=== PATIENT | male | born 1995 | race Caucasian/White ===

== ENCOUNTER → 2016-12-03 | Outpatient (CLI) | payer BC ==
[~2016-12-03] MED LIST: CELE20TA PO; SYMB80INH INH; TRAZ50TA4 PO; XANA0.5T PO; ZYRT10TA2 PO
--- NOTE | 2016-12-03 19:05 | REP ---
RIGHT ELBOW, FOUR VIEWS: There is no evidence of an acute fracture, dislocation or intrinsic bone disease. IMPRESSION: No fracture or dislocation. Signed by Lincoln Lea MD 12/03/2016 07:18 P
--- NOTE | 2016-12-03 19:06 | REP ---
RIGHT WRIST, FOUR VIEWS: There is no evidence of an acute fracture, dislocation or intrinsic bone disease. IMPRESSION: No fracture or dislocation. Signed by Lincoln Lea MD 12/03/2016 07:18 P
--- NOTE | 2016-12-03 19:07 | REP ---
LEFT HAND, FOUR VIEWS: There is no evidence of an acute fracture, dislocation or intrinsic bone disease. IMPRESSION: No fracture or dislocation. Signed by Lincoln Lea MD 12/03/2016 07:18 P
--- NOTE | 2016-12-03 19:08 | REP ---
RIGHT FOOT, FOUR VIEWS: There is no evidence of an acute fracture, dislocation or intrinsic bone disease. IMPRESSION: No fracture or dislocation. Signed by Lincoln Lea MD 12/03/2016 07:18 P
== END ==
LOC: M LRY 17:51
PROVIDERS: ATTEND Nurse Practitioner Family
DX: S59.901A Unspecified injury of right elbow, initial encounter (principal); S99.921A Unspecified injury of right foot, initial encounter; S69.91XA Unspecified injury of right wrist, hand and finger(s), initial encounter; X58.XXXA Exposure to other specified factors, initial encounter; Y93.9 Activity, unspecified; Y92.9 Unspecified place or not applicable; Y99.8 Other external cause status

== ENCOUNTER 2017-01-06 00:07 | Emergency (ER) | payer BC ==
--- NOTE | 2017-01-06 02:35 | EDDOCDS ---
Physician Documentation [facility] Name: Jason Zhu Age: 21 yrs Sex: Male : 1995 Arrival Date: 01/06/2017 Time: 00:07 Bed I Private MD: Disposition: 01/06/17 02:30 Discharged to Home/Self Care. Impression: Impacted cerumen, right ear. - Condition is Stable. - Discharge Instructions: Cerumen Impaction. - Medication Reconciliation, Local Pharmacy Hours form. - Follow up: Private Physician; When: As needed; Reason: Recheck today's complaints, Continuance of care. - Problem is new. - Symptoms have improved. - Notes: FOLLOW UP WITH YOUR DOCTOR NEEDED, RETURN TO THE ER IF THE SYMPTOMS WORSEN OR BECOME CONCERNING Historical: - Allergies: PENICILLINS (Rash); - Home Meds: 1. citalopram 40 mg Oral tab once daily 2. OTC antacid 3. symbicort in haler as needed 4. Xanax 0.25 mg Oral tab 1 tab as needed 5. Zyrtec 10 mg Oral tab 1 tab once daily 6. hycosamine .325 BID - PMHx: Anxiety; Environmental allergies; IBS; - PSHx: right shoulder surgery; Tonsillectomy; Tubes in ears; - Social history: Smoking status: Patient uses tobacco products, current every day smoker. No barriers to communication noted, The patient speaks fluent Uzbek, Speaks appropriately for age, Preferred Language: Uzbek. - Family history: Not pertinent. - : The pt / caregiver states he / she is not on anticoagulants. Home medication list is obtained from the patient. - Exposure Risk Screening:: None identified. Vital Signs: 01/06 00:26 BP 134 / 81; Pulse 107; Resp 18; Temp 98.3(TE); Pulse Ox 97% on R/A; Weight 65.77 kg / cierra 145 lbs; Height 6 ft. 0 in. (182.88 cm) (R); Pain 5/10; 02:26 BP 118 / 73; Pulse 94; Resp 18; Temp 97.4; Pulse Ox 96% ; Pain 0/10; ajs 00:26 Body Mass Index 19.67 (65.77 kg, 182.88 cm) cierra MDM: 02:26 Misc. Nursing Order ordered. ck7 02:34 Financial registration complete. pm4 Signatures: Cynthia Paulson,RN RN lf1 Julian Queen, EDGAR-C RPA-Cck7 Yossi Blackwell,RN RN Ricardo Jain, Reg Reg pm4 MTDD
--- NOTE | 2017-01-06 02:35 | EDDOCDS ---
Nurse's Notes [facility] Name: Jason Zhu Age: 21 yrs Sex: Male : 1995 Arrival Date: 01/06/2017 Time: 00:07 Bed I Private MD: Diagnosis: Impacted cerumen, right ear Presentation: 01/06 00:30 Presenting complaint: Patient states: Right ear pain that began today, pt. reports he lf1 has been using ear wax removal drops for two to three days and today ear pain began. Pain is currently 4/10 with decreased hearing in right ear. Adult Sepsis Screening: The patient does not have new or worsening altered mentation. Patient's respiratory rate is less than 22. Systolic blood pressure is greater than 100. Patient has a qSOFA score of 0- Negative Sepsis Screen. Suicide/Homicide risk assessment- the patient denies having any suicidal and/or homicidal ideations and does not present with any other emotional, behavioral or mental health complaints. Status: Patient is not a home service director or dependent. Transition of care: patient was not received from another setting of care. 00:30 Acuity: VALDEZ Level 4 lf1 00:30 Method Of Arrival: Walkin/Carried/Asstd lf1 Triage Assessment: 00:33 General: Appears in no apparent distress, comfortable, Behavior is cooperative. Pain: lf1 Location: right ear Pain currently is 4 out of 10 on a pain scale. HIV screening NA for this visit. Neurological: Level of Consciousness is awake, alert, Oriented to person, place, time. EENT: Reports pain in right ear. Respiratory: Respiratory effort is even, unlabored. GI: Denies nausea, vomiting. Derm: Skin is. Historical: - Allergies: PENICILLINS (Rash); - Home Meds: 1. citalopram 40 mg Oral tab once daily 2. OTC antacid 3. symbicort in haler as needed 4. Xanax 0.25 mg Oral tab 1 tab as needed 5. Zyrtec 10 mg Oral tab 1 tab once daily 6. hycosamine .325 BID - PMHx: Anxiety; Environmental allergies; IBS; - PSHx: right shoulder surgery; Tonsillectomy; Tubes in ears; - Social history: Smoking status: Patient uses tobacco products, current every day smoker. No barriers to communication noted, The patient speaks fluent East Timorese, Speaks appropriately for age, Preferred Language: [place]orese. - Family history: Not pertinent. - : The pt / caregiver states he / she is not on anticoagulants. Home medication list is obtained from the patient. - Exposure Risk Screening:: None identified. Screenin:35 Screening information is obtained from the patient. Fall risk: No risks identified. lf1 Assistance ADL's: requires no assistance with activities of daily living. Abuse/DV Screen: The patient / caregiver reports he/she is: not in a situation that causes fear, pain or injury. Nutritional screening: On IBS. Advance Directives: Currently, there is no health care proxy. home support is adequate. Assessment: 02:16 Adult Sepsis Screening: The patient does not have new or worsening altered mentation. lf1 Patient's respiratory rate is less than 22. Systolic blood pressure is greater than 100. Patient has a qSOFA score of 0- Negative Sepsis Screen. General: Appears in no apparent distress, comfortable, Behavior is cooperative. Pain: Location: right ear. Neurological: Level of Consciousness is awake, alert. EENT: Reports decreased hearing and pain in right ear. Respiratory: Respiratory effort is even, unlabored. GI: Denies nausea, vomiting. Derm: Skin is normal. 02:33 General: Patient instructed on discharge instructions. Patient asked if there were any b questions regarding discharge, patient stated no. Patient signed discharge instructions. Patient discharged in stable condition. . Vital Signs: 00:26 BP 134 / 81; Pulse 107; Resp 18; Temp 98.3(TE); Pulse Ox 97% on R/A; Weight 65.77 kg; cierra Height 6 ft. 0 in. (182.88 cm) (R); Pain 5/10; 02:26 BP 118 / 73; Pulse 94; Resp 18; Temp 97.4; Pulse Ox 96% ; Pain 0/10; ajs 00:26 Body Mass Index 19.67 (65.77 kg, 182.88 cm) cierra Vitals: 00:33 Log In Time: January 06, 2017 at 00:09. 1 ED Course: 00:09 Patient visited by Gabbi Amaral, Frank. hs2 00:09 Patient moved to Waiting hs2 00:25 Patient moved to Triage 2 cierra 00:27 Patient visited by June Thomas PCA. cierra 00:30 Patient visited by Cynthia Paulson RN. lf1 00:31 Triage Initiated lf1 00:36 Patient moved to [facility] Wait cierra 01:21 Patient moved to I7 / 29 ajs 02:01 Julian Queen [facility]C [facility] ck7 02:01 Luis Blackmon DO is Attending Physician. ck7 02:01 Patient visited by Julian Queen RPA-C. ck7 02:17 Patient visited by Cynthia Paulson RN. lf1 02:27 Patient visited by Leanne Swan. ajs 02:33 The patient / caregiver is instructed regarding the plan of care and ED course. jmb 02:33 No IV's were initiated during this patient's visit. No procedures done that require jmb assistance. Order Results: There are currently no results for this order. Outcome: 02:30 Discharge ordered by Provider. ck7 02:33 Discharge Assessment: Patient awake, alert and oriented x 3. No cognitive and/or jmb functional deficits noted. Patient verbalized understanding of disposition instructions. Patient awake and alert. obeys commands, Oriented to person, place and time. Patient verbalized understanding of disposition instructions. Patient has no functional deficits. patient administered narcotics - no. The following High Risk Discharge criteria are identified: None. Discharged to home ambulatory. Condition: stable Condition: improved. Discharge instructions given to patient, Instructed on discharge instructions, follow up and referral plans. Demonstrated understanding of instructions, Pt was receptive of discharge instructions/ teaching. No special radiology studies were completed. Property sent home with patient. 02:34 Patient left the ED. tiffany Signatures: Cynthia Paulson,ROMEL RN lf1 William June, SHOE PATTERNMAKER SHOE PATTERNMAKER cierra Leanne Swan [facility] Julian Queen RPA-C RPA-Cck7 Yossi BlackwellRN Gabbi Botello, Reg Reg hs2 MTDD
--- NOTE | 2017-01-08 03:35 | EDDOCDS ---
Physician Documentation [facility] Name: Jason Zhu Age: 21 yrs Sex: Male : 1995 Arrival Date: 01/06/2017 Time: 00:07 Bed I Private MD: Disposition: 01/06/17 02:30 Discharged to Home/Self Care. Impression: Impacted cerumen, right ear. - Condition is Stable. - Discharge Instructions: Cerumen Impaction. - Medication Reconciliation, Local Pharmacy Hours form. - Follow up: Private Physician; When: As needed; Reason: Recheck today's complaints, Continuance of care. - Problem is new. - Symptoms have improved. - Notes: FOLLOW UP WITH YOUR DOCTOR NEEDED, RETURN TO THE ER IF THE SYMPTOMS WORSEN OR BECOME CONCERNING Historical: - Allergies: PENICILLINS (Rash); - Home Meds: 1. citalopram 40 mg Oral tab once daily 2. OTC antacid 3. symbicort in haler as needed 4. Xanax 0.25 mg Oral tab 1 tab as needed 5. Zyrtec 10 mg Oral tab 1 tab once daily 6. hycosamine .325 BID - PMHx: Anxiety; Environmental allergies; IBS; - PSHx: right shoulder surgery; Tonsillectomy; Tubes in ears; - Social history: Smoking status: Patient uses tobacco products, current every day smoker. No barriers to communication noted, The patient speaks fluent Northern Irish, Speaks appropriately for age, Preferred Language: Northern Irish. - Family history: Not pertinent. - : The pt / caregiver states he / she is not on anticoagulants. Home medication list is obtained from the patient. - Exposure Risk Screening:: None identified. Vital Signs: 01/06 00:26 BP 134 / 81; Pulse 107; Resp 18; Temp 98.3(TE); Pulse Ox 97% on R/A; Weight 65.77 kg / cierra 145 lbs; Height 6 ft. 0 in. (182.88 cm) (R); Pain 5/10; 02:26 BP 118 / 73; Pulse 94; Resp 18; Temp 97.4; Pulse Ox 96% ; Pain 0/10; ajs 00:26 Body Mass Index 19.67 (65.77 kg, 182.88 cm) cierra MDM: 02:26 Misc. Nursing Order ordered. ck7 02:34 Financial registration complete. pm4 02:58 [facility]-EM Payment Agreement was scanned into [employer] and attached to record. pm4 01/07 12:57 T-Sheet-- Draft Copy was scanned into [employer] and attached to record. gb Signatures: Azra Mclean, Reg Reg gb Cynthia Paulson,RN RN lf1 Julian Queen, SUSANNEC RPA-Cck7 Yossi BlackwellRN RN jmb Ricardo See, Reg Reg pm4 The chart was reviewed and I authenticate all verbal orders and agree with the evaluation and treatment provided.Attachments: 01/06 02:58 MS-EM Payment Agreement pm4 01/07 12:57 T-Sheet-- Draft Copy gb Chart Complete MTDD
--- NOTE | 2017-01-08 03:36 | EDDOCDS ---
Nurse's Notes [facility] Name: Jason Zhu Age: 21 yrs Sex: Male : 1995 Arrival Date: 01/06/2017 Time: 00:07 Bed I Private MD: Diagnosis: Impacted cerumen, right ear Presentation: 01/06 00:30 Presenting complaint: Patient states: Right ear pain that began today, pt. reports he lf1 has been using ear wax removal drops for two to three days and today ear pain began. Pain is currently 4/10 with decreased hearing in right ear. Adult Sepsis Screening: The patient does not have new or worsening altered mentation. Patient's respiratory rate is less than 22. Systolic blood pressure is greater than 100. Patient has a qSOFA score of 0- Negative Sepsis Screen. Suicide/Homicide risk assessment- the patient denies having any suicidal and/or homicidal ideations and does not present with any other emotional, behavioral or mental health complaints. Status: Patient is not a health services rn or dependent. Transition of care: patient was not received from another setting of care. 00:30 Acuity: VALDEZ Level 4 lf1 00:30 Method Of Arrival: Walkin/Carried/Asstd lf1 Triage Assessment: 00:33 General: Appears in no apparent distress, comfortable, Behavior is cooperative. Pain: lf1 Location: right ear Pain currently is 4 out of 10 on a pain scale. HIV screening NA for this visit. Neurological: Level of Consciousness is awake, alert, Oriented to person, place, time. EENT: Reports pain in right ear. Respiratory: Respiratory effort is even, unlabored. GI: Denies nausea, vomiting. Derm: Skin is. Historical: - Allergies: PENICILLINS (Rash); - Home Meds: 1. citalopram 40 mg Oral tab once daily 2. OTC antacid 3. symbicort in haler as needed 4. Xanax 0.25 mg Oral tab 1 tab as needed 5. Zyrtec 10 mg Oral tab 1 tab once daily 6. hycosamine .325 BID - PMHx: Anxiety; Environmental allergies; IBS; - PSHx: right shoulder surgery; Tonsillectomy; Tubes in ears; - Social history: Smoking status: Patient uses tobacco products, current every day smoker. No barriers to communication noted, The patient speaks fluent Ukrainian, Speaks appropriately for age, Preferred Language: Ukrainian. - Family history: Not pertinent. - : The pt / caregiver states he / she is not on anticoagulants. Home medication list is obtained from the patient. - Exposure Risk Screening:: None identified. Screenin:35 Screening information is obtained from the patient. Fall risk: No risks identified. lf1 Assistance ADL's: requires no assistance with activities of daily living. Abuse/DV Screen: The patient / caregiver reports he/she is: not in a situation that causes fear, pain or injury. Nutritional screening: On IBS. Advance Directives: Currently, there is no health care proxy. home support is adequate. Assessment: 02:16 Adult Sepsis Screening: The patient does not have new or worsening altered mentation. lf1 Patient's respiratory rate is less than 22. Systolic blood pressure is greater than 100. Patient has a qSOFA score of 0- Negative Sepsis Screen. General: Appears in no apparent distress, comfortable, Behavior is cooperative. Pain: Location: right ear. Neurological: Level of Consciousness is awake, alert. EENT: Reports decreased hearing and pain in right ear. Respiratory: Respiratory effort is even, unlabored. GI: Denies nausea, vomiting. Derm: Skin is normal. 02:33 General: Patient instructed on discharge instructions. Patient asked if there were any b questions regarding discharge, patient stated no. Patient signed discharge instructions. Patient discharged in stable condition. . Vital Signs: 00:26 BP 134 / 81; Pulse 107; Resp 18; Temp 98.3(TE); Pulse Ox 97% on R/A; Weight 65.77 kg; cierra Height 6 ft. 0 in. (182.88 cm) (R); Pain 5/10; 02:26 BP 118 / 73; Pulse 94; Resp 18; Temp 97.4; Pulse Ox 96% ; Pain 0/10; ajs 00:26 Body Mass Index 19.67 (65.77 kg, 182.88 cm) cierra Vitals: 00:33 Log In Time: January 06, 2017 at 00:09. 1 ED Course: 00:09 Patient visited by Gabbi Amaral, Frank. hs2 00:09 Patient moved to Waiting hs2 00:25 Patient moved to Triage 2 cierra 00:27 Patient visited by June Thomas PCA. cierra 00:30 Patient visited by Cynthia Paulson RN. lf1 00:31 Triage Initiated lf1 00:36 Patient moved to MTA Wait cierra 01:21 Patient moved to I7 / ajs 02:01 Julian Queen RPA-C is PHCP. ck7 02:01 Luis Blackmon DO is Attending Physician. ck7 02:01 Patient visited by Julian Queen RPA-C. ck7 02:17 Patient visited by Cynthia Paulson RN. lf1 02:27 Patient visited by Leanne Swan. ajs 02:33 The patient / caregiver is instructed regarding the plan of care and ED course. jmb 02:33 No IV's were initiated during this patient's visit. No procedures done that require jmb assistance. 02:58 [facility] Payment Agreement was scanned into [employer] and attached to record. pm4 01/07 12:57 T-Sheet-- Draft Copy was scanned into [employer] and attached to record. gb Order Results: There are currently no results for this order. Outcome: 01/06 02:30 Discharge ordered by Provider. ck7 02:33 Discharge Assessment: Patient awake, alert and oriented x 3. No cognitive and/or jmb functional deficits noted. Patient verbalized understanding of disposition instructions. Patient awake and alert. obeys commands, Oriented to person, place and time. Patient verbalized understanding of disposition instructions. Patient has no functional deficits. patient administered narcotics - no. The following High Risk Discharge criteria are identified: None. Discharged to home ambulatory. Condition: stable Condition: improved. Discharge instructions given to patient, Instructed on discharge instructions, follow up and referral plans. Demonstrated understanding of instructions, Pt was receptive of discharge instructions/ teaching. No special radiology studies were completed. Property sent home with patient. 02:34 Patient left the ED. jmb Signatures: Azra Mclean, Reg Reg gb Cynthia Paulson,RN RN lf1 June Thomas, LIFE SKILLS TRAINER LIFE SKILLS TRAINER cierra Leanne Swan Christopher, RPA-C RPA-CckYossi WayneRN Gabbi Botello, Reg Reg hs2 Ricardo See, Reg Reg pm4 Chart Complete MTDD
--- NOTE | 2017-01-08 03:37 | EDDOCDS ---
Physician Documentation [facility] Name: Jason Zhu Age: 21 yrs Sex: Male : 1995 Arrival Date: 01/06/2017 Time: 00:07 Bed I Private MD: Disposition: 01/06/17 02:30 Discharged to Home/Self Care. Impression: Impacted cerumen, right ear. - Condition is Stable. - Discharge Instructions: Cerumen Impaction. - Medication Reconciliation, Local Pharmacy Hours form. - Follow up: Private Physician; When: As needed; Reason: Recheck today's complaints, Continuance of care. - Problem is new. - Symptoms have improved. - Notes: FOLLOW UP WITH YOUR DOCTOR NEEDED, RETURN TO THE ER IF THE SYMPTOMS WORSEN OR BECOME CONCERNING Historical: - Allergies: PENICILLINS (Rash); - Home Meds: 1. citalopram 40 mg Oral tab once daily 2. OTC antacid 3. symbicort in haler as needed 4. Xanax 0.25 mg Oral tab 1 tab as needed 5. Zyrtec 10 mg Oral tab 1 tab once daily 6. hycosamine .325 BID - PMHx: Anxiety; Environmental allergies; IBS; - PSHx: right shoulder surgery; Tonsillectomy; Tubes in ears; - Social history: Smoking status: Patient uses tobacco products, current every day smoker. No barriers to communication noted, The patient speaks fluent Nigerien, Speaks appropriately for age, Preferred Language: Nigerien. - Family history: Not pertinent. - : The pt / caregiver states he / she is not on anticoagulants. Home medication list is obtained from the patient. - Exposure Risk Screening:: None identified. Vital Signs: 01/06 00:26 BP 134 / 81; Pulse 107; Resp 18; Temp 98.3(TE); Pulse Ox 97% on R/A; Weight 65.77 kg / cierra 145 lbs; Height 6 ft. 0 in. (182.88 cm) (R); Pain 5/10; 02:26 BP 118 / 73; Pulse 94; Resp 18; Temp 97.4; Pulse Ox 96% ; Pain 0/10; ajs 00:26 Body Mass Index 19.67 (65.77 kg, 182.88 cm) cierra MDM: 02:26 Misc. Nursing Order ordered. ck7 02:34 Financial registration complete. pm4 02:58 ME-EM Payment Agreement was scanned into [employer] and attached to record. pm4 01/07 12:57 T-Sheet-- Draft Copy was scanned into [employer] and attached to record. gb Signatures: Azra Mclean, Reg Reg gb Cyntiha Paulson,RN RN lf1 Julian Queen, SUSANNEC RPA-Cck7 Yossi BlackwellRN RN jmb Ricardo See, Reg Reg pm4 The chart was reviewed and I authenticate all verbal orders and agree with the evaluation and treatment provided.Attachments: 01/06 02:58 ME-EM Payment Agreement pm4 01/07 12:57 T-Sheet-- Draft Copy gb Chart Complete MTDD
== END 2017-01-06 02:34 | disposition home or self-care (01) ==
LOC: M ED 00:07
DX: H61.21 Impacted cerumen, right ear (principal); F41.9 Anxiety disorder, unspecified; J30.9 Allergic rhinitis, unspecified; K58.9 Irritable bowel syndrome, unspecified; F17.210 Nicotine dependence, cigarettes, uncomplicated; Z79.899 Other long term (current) drug therapy; Z88.0 Allergy status to penicillin

== ENCOUNTER → 2017-10-12 | Outpatient (REF) | payer BC ==
[~2017-10-12] MED LIST changes: +TRAZ50TA11 PO; -TRAZ50TA4 PO
[2017-10-12 14:28] LABS: CORTISOL AM 22.3 UG/DL (4.3-22.4)
[2017-10-12 14:29] LABS: THYROID PEROXIDASE ANTIBODY < 28.0 U/ML (<60.0)
[2017-10-12 14:31] LABS: FREE T4 0.92 NG/DL (0.76-1.46)
== END ==
LOC: M LABDRAW1 10:47
PROVIDERS: ATTEND Internal Medicine Endocrinology, Diabetes & Metabolism
DX: R11.2 Nausea with vomiting, unspecified (principal); R94.6 Abnormal results of thyroid function studies

== ENCOUNTER → 2017-10-15 | Outpatient (CLI) | payer BC ==
--- NOTE | 2017-10-15 11:32 | REP ---
Gastric emptying nuclear scintigraphy: History: Nausea vomiting. Abdominal pain. Loss of appetite and early satiety. Technique: 0.96 mCi of technetium-99m sulfur colloid was ingested in two scrambled eggs and 6 ounces of water and sequential anterior and posterior images are acquired for an 89-minute imaging observation period. Regions of interest are drawn around the stomach to plot gastric emptying. Scintigraphic findings: Expected T1/2 is 90 minutes. 54 % emptying is observed in this patient during the 89-minute imaging observation period, for a calculated T1/2 in this patient of 92 minutes. Impression: Normal gastric emptying. Signed by Koby Hubbard MD 10/15/2017 11:23 A
== END ==
LOC: M RAD 08:54
PROVIDERS: ATTEND Internal Medicine Gastroenterology
DX: R11.2 Nausea with vomiting, unspecified (principal)
CPT/HCPCS: 78264; A9541

== ENCOUNTER → 2018-01-21 | Outpatient (CLI) | payer BC | LOC: M WUC 14:58 | DX: S62.342A Nondisplaced fracture of base of third metacarpal bone, right hand, initial encounter for closed fracture (principal); S62.344A Nondisplaced fracture of base of fourth metacarpal bone, right hand, initial encounter for closed fracture; X58.XXXA Exposure to other specified factors, initial encounter; Y92.89 Other specified places as the place of occurrence of the external cause | CPT/HCPCS: 73130 ==

== ENCOUNTER → 2018-03-01 | Outpatient (CLI) | payer BC ==
[2018-03-01 19:23] LABS: C REACTIVE PROTEIN QUANTITATIV < 0.30 MG/DL (0.00-0.30)
[2018-03-01 19:23] LABS: THYROID STIMULATING HORMONE 0.613 uIU/ML (0.358-3.740)
== END ==
LOC: M LAB 16:13
DX: R10.84 Generalized abdominal pain (principal); G43.A0 Cyclical vomiting, in migraine, not intractable; R19.7 Diarrhea, unspecified
CPT/HCPCS: 84443

== ENCOUNTER → 2018-03-11 | Outpatient (REF) | payer BC ==
[2018-03-11 18:40] LABS: BASO % 0.4 % (0.0-1.0); EOS # 0.2 10^3/uL (0.0-0.50); EOS % 3.2 % (0.0-3.0); HEMATOCRIT 43.5 % (42.0-52.0); HEMOGLOBIN 14.4 g/dl (13.5-17.5); IMMATURE GRANULOCYTE % 0.6 % (0-3.0); LYMPH # 1.5 10^3/uL (1.5-6.5); LYMPH % 22.3 % (24.0-44.0); MEAN CORPUSCULAR HEMOGLOBIN 30.3 pg (27.0-33.0); MEAN CORPUSCULAR HGB CONC 33.1 g/dl (32.0-36.5); MEAN CORPUSCULAR VOLUME 91.6 fl (80.0-96.0); MONO # 0.5 10^3/uL (0.0-0.8); MONO % 7.3 % (0.0-5.0); NEUTROPHILS # 4.5 10^3/uL (1.8-7.7); NEUTROPHILS % 66.2 % (36.0-66.0); PLATELET COUNT, AUTOMATED 298 10^3/uL (150-450); RED BLOOD COUNT 4.75 10^6/uL (4.30-6.10); RED CELL DISTRIBUTION WIDTH 12.7 % (11.5-14.5); WHITE BLOOD COUNT 6.9 10^3/uL (4.0-10.0)
[2018-03-11 18:52] LABS: ALBUMIN 4.4 GM/DL (3.2-5.2); ALBUMIN/GLOBULIN RATIO 1.47 (1.00-1.93); ALKALINE PHOSPHATASE 64 U/L (45-117); ALT/SGPT 39 U/L (12-78); ANION GAP 7 MEQ/L (8-16); AST/SGOT 19 U/L (7-37); BILIRUBIN,TOTAL 0.4 MG/DL (0.2-1.0); BLOOD UREA NITROGEN 12 MG/DL (7-18); CALCIUM LEVEL 9.3 MG/DL (8.5-10.1); CARBON DIOXIDE LEVEL 29 MEQ/L (21-32); CHLORIDE LEVEL 105 MEQ/L (98-107); CREATININE FOR GFR 0.83 MG/DL (0.70-1.30); FREE T4 0.91 NG/DL (0.76-1.46); GLOMERULAR FILTRATION RATE > 60.0 (>60); GLUCOSE, FASTING 83 MG/DL (70-100); SODIUM LEVEL 141 MEQ/L (136-145); THYROID STIMULATING HORMONE 0.782 uIU/ML (0.358-3.740); TOTAL PROTEIN 7.4 GM/DL (6.4-8.2)
== END ==
LOC: M LABDRAW1 15:10
DX: G43.A0 Cyclical vomiting, in migraine, not intractable (principal); F41.1 Generalized anxiety disorder
CPT/HCPCS: 84443

== ENCOUNTER 2018-07-11 16:01 | Emergency (ER) | payer BC ==
[2018-07-11] MEDS: LIDOCAINE W/EPINEPHRINE 1% 20ML VIAL SC (18:00)
[2018-07-11] MEDS: CIPROFLOXACIN 500 MG TAB PO (18:19)
== END 2018-07-11 18:25 | disposition home or self-care (01) ==
LOC: M ED 16:01
DX: S91.011A Laceration without foreign body, right ankle, initial encounter (principal); W22.8XXA Striking against or struck by other objects, initial encounter; Y92.828 Other wilderness area as the place of occurrence of the external cause; K58.9 Irritable bowel syndrome, unspecified; F41.9 Anxiety disorder, unspecified
CPT/HCPCS: 12002

== ENCOUNTER → 2018-08-04 | Outpatient (CLI) | payer BC ==
[~2018-08-04] MED LIST changes: -CELE20TA PO; +PROHANCE 279.3MG/ML 15ML VIAL (A9576) As Ordered; -SYMB80INH INH; -TRAZ50TA11 PO; -XANA0.5T PO; -ZYRT10TA2 PO
== END ==
LOC: M RAD 14:50
DX: H81.91 Unspecified disorder of vestibular function, right ear (principal)

== ENCOUNTER → 2018-09-22 | Outpatient (CLI) | payer BC | LOC: M WUC 18:34 | DX: S90.02XA Contusion of left ankle, initial encounter (principal); S90.32XA Contusion of left foot, initial encounter; X58.XXXA Exposure to other specified factors, initial encounter; Y92.89 Other specified places as the place of occurrence of the external cause | CPT/HCPCS: 73610 ==

== ENCOUNTER → 2018-09-22 | Outpatient (CLI) | payer BC ==
[2018-09-23 17:43] LABS: TESTOSTERONE FREE (DIRECT) 9.4 pg/mL (9.3-26.5)
== END ==
LOC: M LAB 14:37
DX: F41.1 Generalized anxiety disorder (principal)
CPT/HCPCS: 84403

== ENCOUNTER 2018-09-23 00:24 | Emergency (ER) | payer BC ==
[2018-09-23] MEDS: PROMETHAZINE INJ 25 MG/ML VIAL (J2550) IM (02:00)
== END 2018-09-23 03:33 | disposition home or self-care (01) ==
LOC: M ED 00:24
DX: S93.402A Sprain of unspecified ligament of left ankle, initial encounter (principal); S93.602A Unspecified sprain of left foot, initial encounter; X50.9XXA Other and unspecified overexertion or strenuous movements or postures, initial encounter; Y92.018 Other place in single-family (private) house as the place of occurrence of the external cause; F41.9 Anxiety disorder, unspecified; Z79.899 Other long term (current) drug therapy; Z88.0 Allergy status to penicillin; F17.210 Nicotine dependence, cigarettes, uncomplicated
CPT/HCPCS: 73610

== ENCOUNTER 2019-01-31 19:45 | Emergency (ER) | payer BC ==
[~2019-01-31] VITALS: Ht 180.3 cm; Wt 77.3 kg
[~2019-01-31 19:45] MED LIST changes: +ACET1TAB55 PO; +ACET30TAB PO; +ALPR0.25; +AMIT100TA; +CARA1TAB6; +CELE20TA PO; +CETI10TA; +CIPR-249 PO; +CITA40TA4; +CLON1TAB8 PO; +ESCI20TA PO; +HYDR12.55; +HYOS0.374; +KETO10TAB PO; +KLON1TAB; +MECL-58; +OMEP-221; +ONDA4TAB6; -PROHANCE 279.3MG/ML 15ML VIAL (A9576) As Ordered; +SUMA20SP; +SYMB80INH INH; +TRAZ-160 PO; +TRAZ-163; +VITA50005; +XANA0.5T PO; +ZOFR4TAB14 PO; +ZYRT10CA5 PO
[2019-01-31] MEDS ORDERED: [UNRECOGNIZED DRUG - CODE] (19:55)
[2019-01-31] MEDS ORDERED: CETI-14 (19:55)
[2019-01-31 20:36] LABS: BASO % 0.1 % (0.0-1.0); EOS # 0.1 10^3/uL (0.0-0.50); EOS % 0.9 % (0.0-3.0); HEMATOCRIT 38.9 % (42.0-52.0); HEMOGLOBIN 13.3 g/dl (13.5-17.5); LYMPH # 2.1 10^3/uL (1.5-6.5); LYMPH % 27.5 % (24.0-44.0); MEAN CORPUSCULAR HEMOGLOBIN 30.2 pg (27.0-33.0); MEAN CORPUSCULAR HGB CONC 34.2 g/dl (32.0-36.5); MEAN CORPUSCULAR VOLUME 88.4 fl (80.0-96.0); MONO # 0.6 10^3/uL (0.0-0.8); MONO % 7.6 % (0.0-5.0); NEUTROPHILS # 4.9 10^3/uL (1.8-7.7); NEUTROPHILS % 63.6 % (36.0-66.0); PLATELET COUNT, AUTOMATED 309 10^3/uL (150-450); WHITE BLOOD COUNT 7.7 10^3/uL (4.0-10.0)
[2019-01-31 21:05] LABS: ALBUMIN 4.1 GM/DL (3.2-5.2); ALT/SGPT 22 U/L (12-78); BILIRUBIN,DIRECT < 0.1 MG/DL (0.0-0.2); BILIRUBIN,TOTAL 0.2 MG/DL (0.2-1.0); BLOOD UREA NITROGEN 8 MG/DL (7-18); CALCIUM LEVEL 8.8 MG/DL (8.5-10.1); CARBON DIOXIDE LEVEL 29 MEQ/L (21-32); CHLORIDE LEVEL 108 MEQ/L (98-107); CREATININE FOR GFR 0.88 MG/DL (0.70-1.30); GLOMERULAR FILTRATION RATE > 60.0 (>60); GLUCOSE, FASTING 95 MG/DL (70-100); LIPASE 76 U/L (73-393); SODIUM LEVEL 145 MEQ/L (136-145); TOTAL PROTEIN 6.9 GM/DL (6.4-8.2)
[2019-02-01 00:09] VITALS: BP 130/86
== END 2019-02-01 00:10 | disposition home or self-care (01) ==
LOC: M ED 19:45
DX: R19.7 Diarrhea, unspecified (principal); J44.9 Chronic obstructive pulmonary disease, unspecified; G43.A0 Cyclical vomiting, in migraine, not intractable; K58.0 Irritable bowel syndrome with diarrhea; Z88.0 Allergy status to penicillin; Z79.899 Other long term (current) drug therapy

== ENCOUNTER → 2019-02-05 | Outpatient (CLI) | payer BC ==
[~2019-02-05] MED LIST changes: +CETI-14; +[UNRECOGNIZED DRUG - CODE]
--- NOTE | 2019-02-07 09:08 | REP ---
MR CERVICAL SPINE WITHOUT CONTRAST: HISTORY: Neck pain. A disc bulge is present at the C5-6 level. There is minimal effacement of the thecal sac without spinal cord compression. The C5 neural foramen are patent. A disc bulge is present at the C6-7 level. There is minimal effacement of thecal sac without spinal cord compression. The C6 neural foramina are patent. There is no other disc bulge or herniation. The remaining neural foramina are patent. The spinal cord is normal in signal intensity. Normal signal intensity is present in the cervical vertebral bodies. IMPRESSION: There is cervical spondylosis at the C5-6 and C6-7 levels without spinal cord compression. Electronically Signed by Jin Rodriguez MD 02/07/2019 09:49 A
== END ==
LOC: M RAD 10:03
PROVIDERS: ATTEND Registered Nurse
DX: R29.2 Abnormal reflex (principal); M54.2 Cervicalgia; G89.29 Other chronic pain; M47.892 Other spondylosis, cervical region

== ENCOUNTER → 2019-02-18 | Outpatient (CLI) | payer BC ==
[2019-02-18 20:28] LABS: CPK CREATINE PHOSPHOKINASE 117 U/L (39-308); FERRITIN 84 NG/ML (26-388); IRON (FE) 99 UG/DL (65-175); MAGNESIUM LEVEL 2.2 MG/DL (1.8-2.4); TOTAL IRON BINDING CAPACITY 330 UG/DL (250-450); TROPONIN I < 0.02 NG/ML (< 0.10)
[2019-02-18 20:34] LABS: TOTAL 25(OH) VITAMIN D 27.8 NG/ML (30.0-100.0); VITAMIN B12 LEVEL 538 PG/ML (247-911)
[2019-02-18 20:35] LABS: FOLATE 13.2 NG/ML (>5.4)
[2019-02-22 00:07] LABS: ANCA-ATYPICAL <1:20 titer (Neg:<1:20); ANTI-SACCHAROMYCES CEREV. IgA <20.0 Units (0.0-24.9); ANTI-SACCHAROMYCES CEREV. IgG <20.0 Units (0.0-24.9); CYTOPLASMIC NEUTROP AB ANCA-C <1:20 titer (Neg:<1:20); PERINUCLEAR AB ANCA-P <1:20 titer (Neg:<1:20)
== END ==
LOC: M LAB 19:35
PROVIDERS: ATTEND Family Medicine
DX: G43.A0 Cyclical vomiting, in migraine, not intractable (principal); R10.84 Generalized abdominal pain; R19.7 Diarrhea, unspecified; R63.4 Abnormal weight loss

== ENCOUNTER → 2019-02-19 | Outpatient (REF) | payer BC ==
[2019-02-23 14:12] LABS: FATS NEUTRAL Normal (.); FATS TOTAL Normal (.)
[2019-02-25 08:20] LABS: CALPROTECTIN STOOL 55 ug/g (0-120)
== END ==
LOC: M LAB REF 13:49
PROVIDERS: ATTEND Internal Medicine Gastroenterology
DX: G43.A0 Cyclical vomiting, in migraine, not intractable (principal); R10.84 Generalized abdominal pain; R19.7 Diarrhea, unspecified; R63.4 Abnormal weight loss

== ENCOUNTER 2019-03-31 20:11 | Emergency (ER) | payer BC ==
[~2019-03-31] VITALS: Ht 180.3 cm; Wt 77.3 kg
[~2019-03-31 20:11] MED LIST changes: +ACET-716 PO; -ACET30TAB PO
[2019-03-31] MEDS ORDERED: NORC1TAB7 PO (21:08)
[2019-03-31] MEDS: NORCO 5/325MG TABLET (BULK FOR ED) PO ONE (21:21)
[2019-03-31 21:32] VITALS: BP 128/76
--- NOTE | 2019-04-01 01:00 | REP ---
Clinical: Trauma. Technique: AP, lateral, bilateral oblique views right hand . Findings: Transverse fracture through the fourth metacarpal shaft with mild angulation is appreciated along with a comminuted fracture involving the mid to distal fifth metacarpal bone with volar angulation. Overlying soft tissue swelling noted. No subcutaneous emphysema or foreign body. Impression: Fractures involving the fourth and fifth metacarpal bones with mild angulation and overlying swelling. Electronically Signed by Gilbert Dhillon MD 04/01/2019 12:52 A
== END 2019-03-31 21:37 | disposition home or self-care (01) ==
LOC: M ED 20:11
DX: S62.309A Unspecified fracture of unspecified metacarpal bone, initial encounter for closed fracture (principal); W22.09XA Striking against other stationary object, initial encounter; Y92.019 Unspecified place in single-family (private) house as the place of occurrence of the external cause

== ENCOUNTER → 2019-05-18 | Outpatient (CLI) | payer BC ==
[~2019-05-18] MED LIST changes: +NORC1TAB7 PO; -TRAZ-160 PO; +TRAZ-252 PO
--- NOTE | 2019-05-19 07:20 | REP ---
CT LEFT ANKLE: CT left ankle performed in the axial plane. Sagittal and coronal reconstruction images are performed. There is a small nondisplaced fracture at the anterior superior corner of the calcaneus at the margin of the calcaneocuboid joint. Rounded ossific density adjacent to the medial malleolus anteriorly may represent an old fracture or unfused ossicle, diameter is approximately 8 mm. The ankle mortise is anatomic. Small sclerotic bone island is seen in the distal end of the tibia. Similar sclerotic density is seen in the lateral talar dome. Sclerotic density is also seen in the inferior talus in a subcortical location as well as in the lateral cuneiform bone. Surround soft tissue structures are grossly unremarkable. Electronically Signed by Lincoln Lea MD 05/19/2019 09:20 A
== END ==
LOC: M RAD 17:13
PROVIDERS: ATTEND Orthopaedic Surgery
DX: S92.025D Nondisplaced fracture of anterior process of left calcaneus, subsequent encounter for fracture with routine healing (principal); X58.XXXD Exposure to other specified factors, subsequent encounter

== ENCOUNTER 2019-06-19 16:27 | Emergency (ER) | payer BC ==
[~2019-06-19] VITALS: Ht 177.8 cm; Wt 81.8 kg
[2019-06-19 19:00] VITALS: BP 129/80
[2019-06-19 19:07] LABS: BASO % 0.1 % (0.0-1.0); EOS % 0.3 % (0.0-3.0); HEMOGLOBIN 14.6 g/dl (13.5-17.5); LYMPH # 1.7 10^3/uL (1.5-6.5); LYMPH % 18.3 % (24.0-44.0); MEAN CORPUSCULAR HEMOGLOBIN 31.3 pg (27.0-33.0); MEAN CORPUSCULAR HGB CONC 34.8 g/dl (32.0-36.5); MEAN CORPUSCULAR VOLUME 89.9 fl (80.0-96.0); MONO # 0.6 10^3/uL (0.0-0.8); MONO % 6.5 % (0.0-5.0); NEUTROPHILS # 6.8 10^3/uL (1.8-7.7); NEUTROPHILS % 74.5 % (36.0-66.0); PLATELET COUNT, AUTOMATED 332 10^3/uL (150-450); RED BLOOD COUNT 4.67 10^6/uL (4.30-6.10); WHITE BLOOD COUNT 9.1 10^3/uL (4.0-10.0)
[2019-06-19 19:19] LABS: BLOOD UREA NITROGEN 10 MG/DL (7-18); CALCIUM LEVEL 9.4 MG/DL (8.5-10.1); CARBON DIOXIDE LEVEL 24 MEQ/L (21-32); CHLORIDE LEVEL 107 MEQ/L (98-107); CK-MB VALUE MASS < 1.0 NG/ML (<3.6); CPK CREATINE PHOSPHOKINASE 99 U/L (39-308); CREATININE FOR GFR 0.98 MG/DL (0.70-1.30); GLOMERULAR FILTRATION RATE > 60.0 (>60); GLUCOSE, FASTING 89 MG/DL (70-100); MB/CK RELATIVE INDEX 1.01 (< OR =4); POTASSIUM SERUM 3.5 MEQ/L (3.5-5.1); SODIUM LEVEL 142 MEQ/L (136-145); TROPONIN I < 0.02 NG/ML (< 0.10)
--- NOTE | 2019-06-19 20:01 | ECGEPIP ---
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
--- NOTE | 2019-06-20 09:32 | REP ---
CHEST, SINGLE VIEW: There is no evidence of acute infiltrate. No pleural effusion is seen. The heart is normal in size. The mediastinal silhouette is unremarkable. The visualized osseous structures are intact. IMPRESSION: No acute pulmonary disease. Electronically Signed by Lincoln Lea MD 06/20/2019 09:38 A
== END 2019-06-19 19:28 | disposition home or self-care (01) ==
LOC: M ED 16:27
DX: R42 Dizziness and giddiness (principal); G43.709 Chronic migraine without aura, not intractable, without status migrainosus; G43.A0 Cyclical vomiting, in migraine, not intractable; F41.9 Anxiety disorder, unspecified; K58.9 Irritable bowel syndrome, unspecified; F17.200 Nicotine dependence, unspecified, uncomplicated; Z79.899 Other long term (current) drug therapy; Z79.51 Long term (current) use of inhaled steroids; Z88.0 Allergy status to penicillin

== ENCOUNTER 2024-06-27 11:21 | Emergency (ER) | payer BC, OTHER ==
[~2024-06-27] VITALS: Ht 180.3 cm; Wt 77.2 kg
[~2024-06-27 11:21] MED LIST changes: -CITA40TA4; +CITA40TA7; -ESCI20TA PO; +ESCI20TA16 PO; -KLON1TAB; +KLON1TAB13; -OMEP-221; +OMEP40CA5; +ONDA-282; -ONDA4TAB6; -SUMA20SP; +SUMA20SP4; -TRAZ-163; +TRAZ-257
[2024-06-27] MEDS ORDERED: SERT50TA29 PO (11:35)
[2024-06-27] MEDS ORDERED: CYCL-707 PO (11:35)
[2024-06-27] MEDS ORDERED: OMEP40CA5 PO (11:35)
[2024-06-27 12:15] LABS: BASO % 0.2 % (0.0-1.0); HEMATOCRIT 42.1 % (42.0-52.0); HEMOGLOBIN 14.8 g/dl (13.5-17.5); LYMPH # 0.7 10^3/uL (1.5-5.0); LYMPH % 4.5 % (24.0-44.0); MEAN CORPUSCULAR HEMOGLOBIN 29.4 pg (27.0-33.0); MEAN CORPUSCULAR HGB CONC 35.2 g/dl (32.0-36.5); MEAN CORPUSCULAR VOLUME 83.5 fl (80.0-96.0); MONO # 0.6 10^3/uL (0.0-0.8); MONO % 3.7 % (2.0-8.0); NEUTROPHILS # 14.5 10^3/uL (1.5-8.5); PLATELET COUNT, AUTOMATED 403 10^3/uL (150-450); RED BLOOD COUNT 5.04 10^6/uL (4.30-6.10); WHITE BLOOD COUNT 15.9 10^3/uL (4.0-10.0)
[2024-06-27] MEDS: NS 1,000 ML IV ONE (12:31)
[2024-06-27] MEDS: METOCLOPRAMIDE INJ 10MG/2ML VIAL IV ONE (12:31)
[2024-06-27 12:49] LABS: LIPASE 20 U/L (12-53)
[2024-06-27 12:51] LABS: ALBUMIN 4.8 G/DL (3.2-5.2); ALKALINE PHOSPHATASE 81 U/L (46-116); ALT/SGPT 30 U/L (7.0-40); AST/SGOT 19 U/L (<34); BILIRUBIN,DIRECT 0.3 MG/DL (<0.4); BILIRUBIN,TOTAL 1.1 MG/DL (0.3-1.2); BLOOD UREA NITROGEN 18 MG/DL (9-23); CALCIUM LEVEL 10.5 MG/DL (8.5-10.1); CARBON DIOXIDE LEVEL 22 MMOL/L (20-31); CHLORIDE LEVEL 99 MMOL/L (98-107); CREATININE FOR GFR 0.81 MG/DL (0.70-1.30); GLOMERULAR FILTRATION RATE > 60.0 (>60); GLUCOSE, FASTING 134 MG/DL (60-100); POTASSIUM SERUM 4.4 MMOL/L (3.5-5.1); SODIUM LEVEL 134 MMOL/L (136-145); TOTAL PROTEIN 7.5 G/DL (5.7-8.2)
[2024-06-27] MEDS ORDERED: ISOVUE-370 76% 100ML VIAL As Ordered ONE (13:36)
[2024-06-27] MEDS: HALOPERIDOL LACTATE 5MG/ML VIAL IV ONE (13:46)
[2024-06-27] MEDS ORDERED: REGL5TAB2 PO (15:22)
[2024-06-27 15:32] VITALS: BP 134/68; TEMP 97.7; O2SAT 95
== END 2024-06-27 15:28 | disposition home or self-care (01) ==
LOC: M ED 11:21
DX: R11.2 Nausea with vomiting, unspecified (principal); R19.7 Diarrhea, unspecified; J45.909 Unspecified asthma, uncomplicated; F41.9 Anxiety disorder, unspecified; F12.10 Cannabis abuse, uncomplicated; Z88.0 Allergy status to penicillin; Z79.899 Other long term (current) drug therapy
CPT/HCPCS: 74177; 80048; 80076; 83690; 85025; 87507; 96361; 96374; 96375; 99284; J1630; J2765; Q9967